=== PATIENT | female | born 1980 | race African-American/Black ===

== ENCOUNTER 2019-02-10 14:48 | Outpatient (CLI) | payer BC, MEDICAID ==
[2019-02-10 15:32] LABS: APPEARANCE,URINE CLEAR; BILIRUBIN,URINE NEGATIVE (NEGATIVE); COLOR,URINE YELLOW; GLUCOSE, URINE NEGATIVE (NEGATIVE); KETONES,URINE NEGATIVE (NEGATIVE); LEUKOCYTE ESTERASE,URINE NEGATIVE (NEGATIVE); NITRITE,URINE NEGATIVE (NEGATIVE); PROTEIN,URINE NEGATIVE (NEGATIVE); URINE SPECIFIC GRAVITY 1.005; UROBILINOGEN,URINE NEGATIVE mg/dL (<2.0)
[2019-02-10 16:02] LABS: URINE AMPHETAMINES SCREEN NEGATIVE; URINE BARBITURATES SCREEN NEGATIVE; URINE BENZODIAZEPINES SCREEN NEGATIVE; URINE COCAINE SCREEN NEGATIVE; URINE MARIJUANA (THC) SCREEN NEGATIVE; URINE METHADONE SCREEN NEGATIVE; URINE PHENCYCLIDINE SCREEN NEGATIVE
== END 2019-02-10 15:57 | disposition home or self-care (01) ==
LOC: LC 14:48
PROVIDERS: ATTEND Obstetrics & Gynecology
PROC: 4A1HXCZ Monitoring of Products of Conception, Cardiac Rate, External Approach (ICD-10-PCS; principal; 2019-02-10)
DX: O47.02 False labor before 37 completed weeks of gestation, second trimester (principal); Z3A.23 23 weeks gestation of pregnancy
CPT/HCPCS: 80307; 81001

== ENCOUNTER 2019-04-05 12:30 | Inpatient (IN) | payer BC, MEDICAID ==
[2019-06-01 10:24] LABS: ABSOLUTE EOSINOPHILS # (AUTO) 0.1 10^3/uL (0.0-0.6); ABSOLUTE LYMPHOCYTES (AUTO) 1.8 10^3/uL (0.5-4.7); ABSOLUTE MONOCYTES (AUTO) 0.6 10^3/uL (0.1-1.4); ABSOLUTE NEUT (AUTO) 5.5 10^3/uL (1.7-8.2); BASOPHILS % (AUTO) 0.3 % (0-2); EOSINOPHILS % (AUTO) 0.9 % (0-6); HEMATOCRIT 33.8 % (36.0-47.0); HEMOGLOBIN 11.4 g/dL (12.0-15.5); LYMPHOCYTES % (AUTO) 22.4 % (13-45); MEAN CORPUSCULAR HEMOGLOBIN 25.4 pg (27.0-33.4); MEAN CORPUSCULAR HGB CONC 33.8 g/dL (32.0-36.0); MEAN CORPUSCULAR VOLUME 75 fl (80-97); MONOCYTES % (AUTO) 7.9 % (3-13); PLATELET COUNT 196 10^3/uL (150-450); RED CELL DISTRIBUTION WIDTH 16.1 % (11.5-14.0); SEGMENTED NEUTROPHILS % (AUTO) 68.5 % (42-78); TOTAL CELLS COUNTED % (AUTO) 100 %
[2019-06-01 10:44] LABS: APPEARANCE,URINE CLEAR; BILIRUBIN,URINE NEGATIVE (NEGATIVE); COLOR,URINE YELLOW; GLUCOSE, URINE NEGATIVE (NEGATIVE); KETONES,URINE NEGATIVE (NEGATIVE); LEUKOCYTE ESTERASE,URINE NEGATIVE (NEGATIVE); NITRITE,URINE NEGATIVE (NEGATIVE); PROTEIN,URINE NEGATIVE (NEGATIVE); URINE SPECIFIC GRAVITY 1.012
[2019-06-01 11:01] LABS: ADD MANUAL MICROSCOPIC YES
[2019-06-01 11:02] LABS: BACTERIA,URINE 1+ /HPF; RBC,URINE RARE /HPF; WBC,URINE NONE SEEN /HPF
[2019-06-01 11:52] LABS: URINE AMPHETAMINES SCREEN NEGATIVE; URINE BARBITURATES SCREEN NEGATIVE; URINE BENZODIAZEPINES SCREEN NEGATIVE; URINE COCAINE SCREEN NEGATIVE; URINE MARIJUANA (THC) SCREEN NEGATIVE; URINE METHADONE SCREEN NEGATIVE; URINE PHENCYCLIDINE SCREEN NEGATIVE
[2019-06-04] MEDS ORDERED: RINGERS SOLUTION,LACTATED 1,500 ML IV PRN (05:00)
[2019-06-04] MEDS ORDERED: AZITHROMYCIN 500 MG in DEXTROSE 5%-WATER 250 ML IV PRN (05:00)
[2019-06-04] MEDS ORDERED: LIDOCAINE 0.5% INJ-PF (5 MG/ML) 50 ML SDV SUBCUT PRN (05:00)
[2019-06-04] MEDS ORDERED: LACTATED RINGERS 1000 ML IV PRN (05:00)
[2019-06-04] MEDS ORDERED: AZITHROMYCIN INJ 500 MG VIAL IV ONE (07:12)
[2019-06-04] MEDS ORDERED: KETOROLAC TROMETHAMINE INJ/PF 30 MG/1 ML SDV ONE (09:38)
[2019-06-04] MEDS ORDERED: FENTANYL CITRATE INJ/PF 100 MCG/2 ML AMPUL ONE (09:38)
[2019-06-04] MEDS ORDERED: EPHEDRINE SULFATE INJ 50 MG/1 ML AMPULE ONE (09:38)
[2019-06-04] MEDS ORDERED: MIDAZOLAM 2 MG/2 ML INJ ONE (09:38)
[2019-06-04] MEDS ORDERED: OXYTOCIN 10 UNIT/ML VIAL ONE ×2 (09:38→09:40)
[2019-06-04] MEDS ORDERED: ACETAMINOPHEN 1,000 MG/100 ML RTUPB IV ONE (09:39)
[2019-06-04] MEDS ORDERED: ONDANSETRON HCL INJ/PF 4 MG/2 ML SDV ONE (09:39)
[2019-06-04] MEDS ORDERED: PHENYLEPHRINE HCL INJ/PF 10 MG/1 ML SDV ONE (09:39)
[2019-06-04] MEDS ORDERED: OXYTOCIN/NORMAL SALINE 20 UNIT/1,000 ML RTUINJ ONE (09:39)
[2019-06-04] MEDS ORDERED: MORPHINE SULFATE 10 MG/ML INJ IV PRN ×2 (11:04→11:08)
[2019-06-04] MEDS ORDERED: FENTANYL CITRATE INJ/PF 100 MCG/2 ML AMPUL IV PRN ×3 (11:04)
[2019-06-04] MEDS ORDERED: PROMETHAZINE HCL INJ 25 MG/1 ML VIAL IV PRN ×3 (11:04→11:08)
[2019-06-04] MEDS ORDERED: OXYCODONE-ACETAMINOPHEN 5-325 MG TABLET PO PRN ×2 (11:04)
[2019-06-04] MEDS ORDERED: DIPHENHYDRAMINE HCL 50 MG/ML VIAL IV PRN (11:04)
[2019-06-04] MEDS ORDERED: MEPERIDINE HCL/PF INJ 25 MG/1 ML DISP.SYRIN IV PRN (11:04)
[2019-06-04] MEDS ORDERED: DIPH/PERTUSS(ACELL)/TETANUS VAC/PF 0.5 ML SYR (>=10YO) IM PRN (11:08)
[2019-06-04] MEDS ORDERED: MEASLES,MUMPS&RUBELLA VACC/PF 0.5 ML VIAL SUBCUT PRN (11:08)
[2019-06-04] MEDS ORDERED: SIMETHICONE 80 MG TAB.CHEW PO PRN (11:08)
[2019-06-04] MEDS ORDERED: RINGERS SOLUTION,LACTATED 1,000 ML IV PRN (11:08)
[2019-06-04] MEDS ORDERED: ACETAMINOPHEN 325 MG TABLET PO PRN (11:08)
[2019-06-04] MEDS ORDERED: OXYTOCIN/NORMAL SALINE 20 UNIT/1,000 ML RTUINJ IV PRN (11:08)
[2019-06-04] MEDS ORDERED: ACETAMINOPHEN 100 ML IV PRN (11:08)
--- NOTE | 2019-06-04 11:15 | Operative Report ---
Operative Report DATE OF SURGERY: 06/04/19 PREOPERATIVE DIAGNOSIS: IUP @ 39 wks, previous c/section x 3, undesired fertili ty POSTOPERATIVE DIAGNOSIS: Same OPERATION: Repeat with [place] tubal ligation SURGEON: RADHA DALEY 1ST TELEGRAPHIC INSTRUMENT SUPERVISOR: EMMA ALVES ANESTHESIA: Spinal TISSUE REMOVED OR ALTERED: Bilateral fallopian tube segments COMPLICATIONS: None ESTIMATED BLOOD LOSS: 750 cc INTRAOPERATIVE FINDINGS: Dense adhesions of fascia to rectus muscle otherwise normal uterus tubes and ovaries PROCEDURE: PROCEDURE IN DETAIL: The patient was taken to the operating room, prepared and draped in a normal sterile fashion in a supine position with a leftward tilt. A transverse skin incision was made with a scalpel and carried through to the underlying layer of fascia with the same scalpel. The fascia was excised in the midline and extended laterally with Bobby. The fascia was then dissected from the rectus muscle sharply with Bobby and the rectus muscle was divided and the peritoneal cavity was entered sharply with the same Metzenbaum. With good visualization of the bladder and the uterus the bladder blade was inserted. The hysterotomy was nicked with a scalpel and extended laterally with surgeon finger fraction. The infant was then delivered atraumatically. The nose and mouth were suctioned with a suction bulb, the cord was clamped and cut and handed off to awaiting pediatricians. Cord blood was collected. The placenta was removed manually. The uterus was exteriorized and cleared of clots and debris. The hysterotomy was closed with 0 Monocryl in a running, locked fashion. A second layer of the same suture was used to imbricate to ensure hemostasis. Attention was then turned to the fallopian tubes where the right fallopian tube was grasped with a Mickey, the mesosalpinx was divided with a Bovie. a 3-1/2 cm segment of fallopian tube was tied off with 2 pieces of 2-0 chromic.this segment was ligated using Metzenbaums and the pedicles were made hemostatic with the Bovie. This procedure was repeated on the left fallopian tube without difficulty . the uterus was returned to the abdomen and peritoneal cavity was cleared of clots and debris. The pedicles were inspected and they were still hemostatic. the rectus muscle and peritoneum were repaired with mattress stitch of 2-0 Chromic. The fascia was closed with 0-Vicryl. The subcutaneous layer was closed with plain catgut and the skin was closed with 4-0 Vicryl. The patient tolerated the procedure well. Sponge, lap, and needle counts correct x2 and the patient was taken to recovery in stable condition.
[2019-06-04] MEDS: FENTANYL CITRATE INJ/PF 100 MCG/2 ML AMPUL ONE ×2 (12:15→12:20)
[2019-06-04] MEDS: MORPHINE SULFATE 10 MG/ML INJ ONE ×2 (12:52→12:55)
[2019-06-04] MEDS ORDERED: HYDROMORPHONE HCL INJ/PF 2 MG/ML AMPULE ONE (15:27)
[2019-06-04] MEDS: DOCUSATE SODIUM 100 MG CAPSULE PO SCH (18:22)
[2019-06-04] MEDS: KETOROLAC TROMETHAMINE INJ/PF 30 MG/1 ML SDV IV SCH (18:22)
[2019-06-04] MEDS: OXYCODONE-ACETAMINOPHEN 5-325 MG TABLET PO PRN (20:23)
[2019-06-05] MEDS: OXYCODONE-ACETAMINOPHEN 5-325 MG TABLET PO PRN ×2 (01:04→09:37)
[2019-06-05] MEDS: KETOROLAC TROMETHAMINE INJ/PF 30 MG/1 ML SDV IV SCH (01:07)
[2019-06-05 06:58] LABS: HEMATOCRIT 23.1 % (36.0-47.0); MEAN CORPUSCULAR HEMOGLOBIN 25.3 pg (27.0-33.4); MEAN CORPUSCULAR HGB CONC 33.6 g/dL (32.0-36.0); MEAN CORPUSCULAR VOLUME 75 fl (80-97); PLATELET COUNT 168 10^3/uL (150-450); RED BLOOD COUNT 3.06 10^6/uL (3.72-5.28); RED CELL DISTRIBUTION WIDTH 16.4 % (11.5-14.0); WHITE BLOOD COUNT 10.4 10^3/uL (4.0-10.5)
[2019-06-05 07:01] LABS: HEMOGLOBIN 7.7 g/dL (12.0-15.5)
[2019-06-05] MEDS ORDERED: NORMAL SALINE 1000 ML 500 ML IV ONE (08:45)
[2019-06-05] MEDS: PRENATAL VITAMIN W DHA CAPSULE PO SCH (09:37)
[2019-06-05] MEDS: DOCUSATE SODIUM 100 MG CAPSULE PO SCH ×2 (09:37→17:25)
[2019-06-05] MEDS: IBUPROFEN 800 MG TABLET PO SCH ×3 (11:30→23:14)
--- NOTE | 2019-06-05 11:41 | PDOC PROGRESS REPORT ---
Subjective-OB Progress Note for:: 06/05/19 Subjective: Sitting up in bed, doing well, holding baby, pain under control, walking, passing gas Physical Exam (OB) Vital Signs: Temp Pulse Resp BP Pulse Ox 97.7 F 74 12 121/66 98 06/05/19 07:59 06/05/19 07:59 06/05/19 07:59 06/05/19 07:59 06/05/19 07:59 Intake & Output 06/04/19 06/05/19 06/06/19 06:59 06:59 06:59 Intake Total 1675 500 Output Total 2053 400 Balance -378 100 Weight 92.079 kg - PIH/Pre-Eclampsia Clonus: Negative Headache: Absent Epigastric Pain: No Visual Changes: No - Dressing Removed: No Incision: Dressing Closure Type: Sutures - Lochia Lochia Amount: Scant < 10 ml Lochia Color: Rubra/Red - Abdomen Description: Tender, Soft, Round, Distended Hernia Present: No Fundal Description: Firm, Midline Fundal Height: u/u - u/2 Objective-Diagnostic Laboratory: 06/05/19 06:46 06/05/19 06:46 WBC 10.4 RBC 3.06 L Hgb 7.7 L Hct 23.1 L MCV 75 L MCH 25.3 L MCHC 33.6 RDW 16.4 H Plt Count 168 Assessment and Plan(PN) - Assessment and Plan (1) Status post surgical removal of both fallopian tubes Is this a current diagnosis for this admission?: Yes (2) Status post repeat low transverse section Is this a current diagnosis for this admission?: Yes - Time Spent with Patient Time with patient: Less than 15 minutes Medications reviewed and adjusted accordingly: Yes - Disposition Anticipated Discharge: Home Within: within 24 hours
[2019-06-05 21:07] LABS: HEMATOCRIT 21.9 % (36.0-47.0); MEAN CORPUSCULAR HEMOGLOBIN 24.8 pg (27.0-33.4); MEAN CORPUSCULAR VOLUME 75 fl (80-97); PLATELET COUNT 190 10^3/uL (150-450); RED BLOOD COUNT 2.93 10^6/uL (3.72-5.28); RED CELL DISTRIBUTION WIDTH 16.4 % (11.5-14.0); WHITE BLOOD COUNT 11.1 10^3/uL (4.0-10.5)
[2019-06-05 21:11] LABS: HEMOGLOBIN 7.2 g/dL (12.0-15.5)
[2019-06-06] MEDS: OXYCODONE-ACETAMINOPHEN 5-325 MG TABLET PO PRN ×2 (01:19→10:20)
[2019-06-06] MEDS: IBUPROFEN 800 MG TABLET PO SCH ×3 (05:26→17:34)
[2019-06-06] MEDS ORDERED: NORMAL SALINE 250 ML IV PRN (10:07)
[2019-06-06] MEDS: PRENATAL VITAMIN W DHA CAPSULE PO SCH (10:11)
[2019-06-06] MEDS: DOCUSATE SODIUM 100 MG CAPSULE PO SCH ×2 (10:11→17:34)
--- NOTE | 2019-06-06 10:12 | PDOC PROGRESS REPORT ---
Subjective-OB Progress Note for:: 06/06/19 Subjective: Pt had CS 2 days ago, feeling weak and says she almost passed out in the bathroom. She also c/o having fast heart rate. Reports reg diet, +flatus and light vaginal bleeding. We discussed her getting 2 units of blood, and she agrees to proceed. Physical Exam (OB) Vital Signs: Temp Pulse Resp BP Pulse Ox 97.5 F 105 H 20 127/81 H 100 06/06/19 07:58 06/06/19 08:28 06/06/19 07:58 06/06/19 08:28 06/06/19 08:28 Intake & Output 06/05/19 06/06/19 06/07/19 06:59 06:59 06:59 Intake Total 1675 500 Output Total 2053 400 Balance -378 100 - PIH/Pre-Eclampsia Clonus: Negative Headache: Absent Epigastric Pain: No Visual Changes: No - Dressing Removed: Yes Incision: Dressing Closure Type: Sutures - Lochia Lochia Amount: Scant < 10 ml Lochia Color: Rubra/Red - Abdomen Description: Tender, Soft, Round, Distended Hernia Present: No Fundal Description: Firm, Midline Fundal Height: u/u - u/2 Objective-Diagnostic Laboratory: 06/05/19 20:40 06/05/19 20:40 WBC 11.1 H RBC 2.93 L Hgb 7.2 L Hct 21.9 L MCV 75 L MCH 24.8 L MCHC 33.0 RDW 16.4 H Plt Count 190 Assessment and Plan(PN) - Assessment and Plan (1) Acute blood loss as cause of postoperative anemia Is this a current diagnosis for this admission?: Yes (2) Status post repeat low transverse section Is this a current diagnosis for this admission?: Yes (3) Status post surgical removal of both fallopian tubes Is this a current diagnosis for this admission?: Yes (4) Gallstones and inflammation of gallbladder without obstruction Is this a current diagnosis for this admission?: Yes - Time Spent with Patient Time with patient: Less than 15 minutes Medications reviewed and adjusted accordingly: Yes - Disposition Anticipated Discharge: Home Within: within 24 hours
[2019-06-07] MEDS: IBUPROFEN 800 MG TABLET PO SCH ×3 (00:19→11:54)
[2019-06-07 03:36] LABS: HEMATOCRIT 25.2 % (36.0-47.0); HEMOGLOBIN 8.6 g/dL (12.0-15.5); MEAN CORPUSCULAR HEMOGLOBIN 26.4 pg (27.0-33.4); MEAN CORPUSCULAR VOLUME 78 fl (80-97); PLATELET COUNT 187 10^3/uL (150-450); RED BLOOD COUNT 3.24 10^6/uL (3.72-5.28); RED CELL DISTRIBUTION WIDTH 17.3 % (11.5-14.0); WHITE BLOOD COUNT 9.7 10^3/uL (4.0-10.5)
[2019-06-07] MEDS: OXYCODONE-ACETAMINOPHEN 5-325 MG TABLET PO PRN (04:54)
[2019-06-07] MEDS: PRENATAL VITAMIN W DHA CAPSULE PO SCH (09:41)
[2019-06-07] MEDS: DOCUSATE SODIUM 100 MG CAPSULE PO SCH (09:41)
--- NOTE | 2019-06-07 10:57 | PDOC DISCHARGE SUMMARY ---
Final Diagnosis Discharge Date: 06/07/19 - Final Diagnosis (1) Acute blood loss as cause of postoperative anemia Is this a current diagnosis for this admission?: Yes (2) Status post repeat low transverse section Is this a current diagnosis for this admission?: Yes (3) Status post surgical removal of both fallopian tubes Is this a current diagnosis for this admission?: Yes Discharge Data - Discharge Medication Prescriptions: Ibuprofen [Motrin 800 mg Tablet] 800 mg PO Q6 #90 tablet Oxycodone HCl/Acetaminophen [Percocet 5-325 mg Tablet] 1 tab PO Q6H PRN #20 tablet PRN Reason: Home Medications: Pnv 102/Iron/Folate 1/Dss/Dha [Vitafol Fe+ Docusate Combo Pck] 1 tab PO DAILY 02/10/19 Cholecalciferol (Vitamin D3) [Vitamin D3 5000 unit Capsule] 5,000 unit PO DAILY 06/01/19 Ibuprofen [Motrin 800 mg Tablet] 800 mg PO Q6 #90 tablet 06/07/19 Oxycodone HCl/Acetaminophen [Percocet 5-325 mg Tablet] 1 tab PO Q6H PRN #20 tablet 06/07/19 Reason(s) for Admission: Ceasarean Section-Repeat Intrapartum Procedure(s): : Low Cervical, Transverse - Diagnosis Test Laboratory: Temp Pulse Resp BP Pulse Ox 97.5 F 94 14 135/74 H 98 06/07/19 08:32 06/07/19 08:32 06/07/19 08:32 06/07/19 08:32 06/07/19 08:32 06/01/19 06/01/19 06/05/19 09:51 09:52 06:46 RBC 4.50 3.06 L Hgb 11.4 L 7.7 L Hct 33.8 L 23.1 L Urine Opiates Screen NEGATIVE 06/05/19 06/07/19 20:40 03:18 RBC 2.93 L 3.24 L Hgb 7.2 L 8.6 L Hct 21.9 L 25.2 L Urine Opiates Screen - Discharge information/Instructions Discharge Activity: Balance Activity w/Rest, No Lifting/Push/Pulling, Pelvic Rest, Walk Frequently Discharge Diet: Regular Disposition: HOME, SELF-CARE Follow up with: [facility] in: 1
[2019-06-07 11:48] VITALS: BP 141/87
== END 2019-06-07 14:00 | disposition home or self-care (01) | DRG 784 ==
LOC: 2S 06-04 06:29
PROVIDERS: ADMIT Obstetrics & Gynecology; ATTEND Obstetrics & Gynecology
PROC: 0UB70ZZ Excision of Bilateral Fallopian Tubes, Open Approach (ICD-10-PCS; 2019-06-04)
PROC: 10D00Z1 Extraction of Products of Conception, Low, Open Approach (ICD-10-PCS; principal; 2019-06-04 09:15)
PROC: 30233N1 Transfusion of Nonautologous Red Blood Cells into Peripheral Vein, Percutaneous Approach (ICD-10-PCS; 2019-06-06)
DX: O34.211 Maternal care for low transverse scar from previous cesarean delivery (principal); D62 Acute posthemorrhagic anemia; Z30.2 Encounter for sterilization; Z37.0 Single live birth; O99.02 Anemia complicating childbirth; Z3A.39 39 weeks gestation of pregnancy; Z86.19 Personal history of other infectious and parasitic diseases; Z88.0 Allergy status to penicillin; Z88.8 Allergy status to other drugs, medicaments and biological substances
CPT/HCPCS: 1961; 36415; 36430; 80307; 81001; 85025; 85027; 86850; 86900; 86901; 86920; 88302; 94799; J0131; J1170; J1885; J2250; J2270; J2370; J2405; J2590; J3010; J3490; J7030; J7120; P9016

== ENCOUNTER 2019-05-11 14:27 | Outpatient (CLI) | payer BC, MEDICAID ==
[2019-05-11] MEDS ORDERED: HYDROXYZINE PAMOATE 50 MG CAPSULE PO ONE (15:00)
[2019-05-11] MEDS ORDERED: HYDROXYZINE PAMOATE 50 MG CAPSULE ONE (15:02)
== END 2019-05-11 15:33 | disposition home or self-care (01) ==
LOC: LC 14:27
PROVIDERS: ATTEND Obstetrics & Gynecology
PROC: 4A1HXCZ Monitoring of Products of Conception, Cardiac Rate, External Approach (ICD-10-PCS; principal; 2019-05-11)
DX: O47.03 False labor before 37 completed weeks of gestation, third trimester (principal); Z3A.35 35 weeks gestation of pregnancy

== ENCOUNTER 2019-07-04 08:46 | Outpatient (CLI) | payer BC, MEDICAID ==
[~2019-07-04 08:46] MED LIST: FERRIC CARBOXYMALTOSE 750 MG in NORMAL SALINE 250 ML IV PRN; NORMAL SALINE 250 ML IV PRN
[2019-07-04 09:05] VITALS: BP 139/85
== END 2019-07-04 10:30 | disposition home or self-care (01) ==
LOC: II 08:46 → 5TH 08:48 → II 10:30
PROVIDERS: ATTEND Internal Medicine
PROC: 3E033GC Introduction of Other Therapeutic Substance into Peripheral Vein, Percutaneous Approach (ICD-10-PCS; principal; 2019-07-04)
DX: D50.8 Other iron deficiency anemias (principal); K90.9 Intestinal malabsorption, unspecified
CPT/HCPCS: 96365; J7050; J1439

== ENCOUNTER 2019-07-11 08:41 | Outpatient (CLI) | payer BC, MEDICAID ==
[2019-07-11 08:58] VITALS: BP 139/89
== END 2019-07-11 09:35 | disposition home or self-care (01) ==
LOC: 5TH 08:41 → II 08:41
PROVIDERS: ATTEND Internal Medicine
PROC: 3E033GC Introduction of Other Therapeutic Substance into Peripheral Vein, Percutaneous Approach (ICD-10-PCS; principal; 2019-07-11)
DX: D50.8 Other iron deficiency anemias (principal); K90.9 Intestinal malabsorption, unspecified
CPT/HCPCS: 96365; J7050; J1439

== ENCOUNTER 2020-04-06 10:51 | Emergency (ER) | payer MEDICAID, OTHER ==
[2020-04-06] MEDS ORDERED: NORMAL SALINE 1000 ML 1,000 ML IV ONE (11:15)
[2020-04-06] MEDS ORDERED: METOCLOPRAMIDE HCL INJ/PF 10 MG/2 ML SDV IV ONE (11:15)
[2020-04-06] MEDS ORDERED: DIPHENHYDRAMINE HCL 50 MG/ML VIAL IV ONE (11:15)
--- NOTE | 2020-04-06 11:27 | ER Document Report ---
ED GI/ - General Chief Complaint: Vomiting Stated Complaint: VOMITING, HEADACHE Time Seen by Provider: 04/06/20 11:02 Notes: CHIEF COMPLAINT: Headaches for 6 months HPI: 39-year-old female presenting to the emergency department complaining of a frontal headache that woke her from sleep around 5 AM this morning with 2-3 episodes of nausea vomiting felt fine going to bed last night no fevers. She is been having weekly headaches similar to this over the last 6 months has not seen a primary care provider for evaluation of same. No history of migraines. No family history of aneurysm or brain tumor. ROS: See HPI - all other systems were reviewed and are otherwise negative Constitutional: no fever Eyes: no drainage, no blurred vision ENT: no runny nose, no sore throat Cardiovascular: no chest pain Resp: no SOB, no cough GI: Positive vomiting, no diarrhea, no abdominal pain : no dysuria Integumentary: no rash Allergy: no hives Musculoskeletal: no extremity pain or swelling Neurological: no numbness/tingling, no weakness, positive headache MEDICATIONS: I agree with the patient medications as charted by the RN. ALLERGIES: I agree with the allergies as charted by the RN. PAST MEDICAL HISTORY/PAST SURGICAL HISTORY: Reviewed and agree as charted by RN. SOCIAL HISTORY: Reviewed and agree as charted by RN. FAMILY HISTORY: No significant familial comorbid conditions directly related to patient complaint EXAM: Reviewed vital signs as charted by RN. CONSTITUTIONAL: Alert and oriented and responds appropriately to questions. Well-appearing; well-nourished HEAD: Normocephalic; atraumatic EYES: PERRL; Conjunctivae clear, sclerae non-icteric. No photophobia ENT: normal nose; no rhinorrhea; moist mucous membranes; pharynx without lesions noted, no uvula edema or deviation, no tonsillar hypertrophy, phonation normal NECK: Supple without meningismus; non-tender; no cervical lymphadenopathy, no masses CARD: RRR; no murmurs, no clicks, no rubs, no gallops; symmetric distal pulses RESP: Normal chest excursion without splinting or tachypnea; breath sounds clear and equal bilaterally; no wheezes, no rhonchi, no rales, pulse oximetry ABD/GI: Normal bowel sounds; non-distended; soft, non-tender, no rebound, no gua rding; no palpable organomegaly or masses. BACK: The back appears normal and is non-tender to palpation, there is no CVA tenderness EXT: Normal ROM in all joints; non-tender to palpation; no cyanosis, no effusions, no edema SKIN: Normal color for age and race; warm; dry; good turgor; no acute lesions noted NEURO: Moves all extremities equally; Motor and sensory function intact. Strength equal 5/5 bilateral upper and lower extremities. Gait is normal. Sensation intact and equal bilateral upper and lower extremities. CN II through XII grossly intact PSYCH: The patient's mood and manner are appropriate. Grooming and personal hygiene are appropriate. MDM: 39-year-old female having weekly headaches for 6 months. Worse today with some nausea vomiting. Neurologically intact. Given the history will obtain CT imaging to evaluate for possible mass, bleeding. Will obtain basic screening labs. Plan to hydrate and treat patient's headache and reassess TRAVEL OUTSIDE OF THE [place] IN LAST 30 DAYS: No - Related Data Allergies/Adverse Reactions: nitrofurantoin [From Macrobid] Allergy (Severe, Verified 05/22/19 10:18) hives,legs cramping nitrofurantoin macrocrystalline [From Macrobid] Allergy (Severe, Verified 10:18) hivs, leg cramps Penicillins Allergy (Severe, Verified 05/22/19 10:18) Hives Past Medical History - Social History Smoking Status: Unknown if Ever Smoked Family History: Reviewed & Not Pertinent - Past Medical History Cardiac Medical History: Denies: Hx Coronary Artery Disease, Hx Heart Attack, Hx Hypertension Pulmonary Medical History: Denies: Hx Asthma, Hx Bronchitis, Hx COPD, Hx Pneumonia Neurological Medical History: Denies: Hx Cerebrovascular Accident, Hx Seizures Musculoskeletal Medical History: Denies Hx Arthritis Psychiatric Medical History: Reports: Hx Anxiety Infectious Medical History: Denies: Hx HIV Past Surgical History: Reports: Hx Abdominal Surgery - hernia, Hx Section - x3 - Immunizations Hx Diphtheria, Pertussis, Tetanus Vaccination: Yes Physical Exam - Vital signs Vitals: Temp Pulse Resp BP Pulse Ox 97.6 F 65 17 124/63 100 04/06/20 11:29 04/06/20 11:29 04/06/20 11:29 04/06/20 11:29 04/06/20 11:29 Course - Re-evaluation Re-evalutation: 04/06/20 13:03 Patient states nausea has completely resolved. Headache is almost completely resolved. Lab work and imaging studies do not show acute abnormalities. May be atypical migraine. She has an appointment with a primary provider in 2 weeks. She is otherwise afebrile and in no acute distress. Will give Toradol here. Will give return instructions. Will prescribe Phenergan for home for nausea as she seems to get these headaches weekly. - Vital Signs Vital signs: Temp Pulse Resp BP Pulse Ox 97.6 F 65 17 124/63 100 04/06/20 11:29 04/06/20 11:29 04/06/20 11:29 04/06/20 11:29 04/06/20 11:29 - Laboratory Result Diagrams: 04/06/20 11:05 04/06/20 11:05 Laboratory results interpreted by me: 04/06/20 11:05 Chloride 108 H Discharge - Discharge Clinical Impression: Atypical migraine Condition: Stable Disposition: HOME, SELF-CARE Additional Instructions: Your CT imaging did not show any acute abnormalities your lab work today was normal. Follow-up with your primary care provider in 2 weeks as scheduled. Return for any concerns. Take the Phenergan for any recurrent nausea or vomiting. Do not drive if taking this medication as it can make you drowsy. Prescriptions: Promethazine HCl [Phenergan 25 mg Tablet] 1 tab PO Q6H PRN #15 tablet PRN Reason:
[2020-04-06 11:43] LABS: ABSOLUTE LYMPHOCYTES (AUTO) 1.5 10^3/uL (0.5-4.7); ABSOLUTE MONOCYTES (AUTO) 0.3 10^3/uL (0.1-1.4); ABSOLUTE NEUT (AUTO) 5.6 10^3/uL (1.7-8.2); BASOPHILS % (AUTO) 0.3 % (0-2); EOSINOPHILS % (AUTO) 0.5 % (0-6); HEMATOCRIT 41.7 % (36.0-47.0); HEMOGLOBIN 14.1 g/dL (12.0-15.5); LYMPHOCYTES % (AUTO) 19.6 % (13-45); MEAN CORPUSCULAR HEMOGLOBIN 28.1 pg (27.0-33.4); MEAN CORPUSCULAR HGB CONC 33.9 g/dL (32.0-36.0); MEAN CORPUSCULAR VOLUME 83 fl (80-97); MONOCYTES % (AUTO) 3.9 % (3-13); PLATELET COUNT 267 10^3/uL (150-450); RED BLOOD COUNT 5.03 10^6/uL (3.72-5.28); SEGMENTED NEUTROPHILS % (AUTO) 75.7 % (42-78); TOTAL CELLS COUNTED % (AUTO) 100 %; WHITE BLOOD COUNT 7.4 10^3/uL (4.0-10.5)
[2020-04-06 12:13] LABS: ALBUMIN 4.3 g/dL (3.5-5.0); ALKALINE PHOSPHATASE 61 U/L (38-126); ANION GAP 5 (5-19); ASPARTATE AMINO TRANSFERASE 18 U/L (14-36); BILIRUBIN,TOTAL 0.6 mg/dL (0.2-1.3); BLOOD UREA NITROGEN 10 mg/dL (7-20); CALCIUM 9.5 mg/dL (8.4-10.2); CARBON DIOXIDE 27 mmol/L (22-30); CHLORIDE 108 mmol/L (98-107); GLUCOSE 106 mg/dL (75-110); POTASSIUM 4.3 mmol/L (3.6-5.0); TOTAL PROTEIN 7.7 g/dL (6.3-8.2)
--- NOTE | 2020-04-06 12:32 | RADIOLOGY REPORT (SQ) ---
EXAM DESCRIPTION: CT HEAD WITHOUT IMAGES COMPLETED DATE/TIME: 04/06/2020 12:16 pm REASON FOR STUDY: headache COMPARISON: 11/12/2012. TECHNIQUE: Axial images acquired through the brain without intravenous contrast. Images reviewed wi th bone, brain and subdural windows. Additional sagittal and coronal reconstructions were generated. Images stored on PACS. All CT scanners at this facility use dose modulation, iterative reconstruction, and/or weight based d osing when appropriate to reduce radiation dose to as low as reasonably achievable (ALARA). [facility]: Dose Right [facility]: CareDose [facility]: Dose Right [facility]: Teradose 4D [facility]: Smart Jeeran RADIATION DOSE: CT Rad equipment meets quality standard of care and radiation dose reduction techniq ues were employed. CTDIvol: 53.2 mGy. DLP: 1017 mGy-cm. mGy. LIMITATIONS: None. FINDINGS: VENTRICLES: Normal size and contour. CEREBRUM: No masses. No hemorrhage. No midline shift. No evidence for acute infarction. Normal gra y/white matter differentiation. No areas of low density in the white matter. CEREBELLUM: No masses. No hemorrhage. No alteration of density. No evidence for acute infarction. EXTRAAXIAL SPACES: No fluid collections. No masses. ORBITS AND GLOBE: No intra- or extraconal masses. Normal contour of globe without masses. CALVARIUM: No fracture. PARANASAL SINUSES: No fluid or mucosal thickening. SOFT TISSUES: No mass or hematoma. OTHER: No other significant finding. IMPRESSION: NORMAL BRAIN CT WITHOUT CONTRAST. EVIDENCE OF ACUTE STROKE: NO. COMMENT: Quality ID # [id number]: Final reports with documentation of one or more dose reduction techniques (e.g., Automated exposure control, adjustment of the mA and/or kV according to patient size, use of iterative reconstruction technique) TECHNICAL DOCUMENTATION: JOB ID: [id number] 2010 [employer]- All Rights Reserved Reading location - IP/workstation name: [email or web address]
[2020-04-06] MEDS ORDERED: KETOROLAC TROMETHAMINE INJ/PF 30 MG/1 ML SDV IV ONE (13:03)
[2020-04-06 13:38] VITALS: BP 127/77
== END 2020-04-06 13:36 | disposition home or self-care (01) ==
LOC: ER 10:51
DX: G43.909 Migraine, unspecified, not intractable, without status migrainosus (principal); R11.2 Nausea with vomiting, unspecified; Z88.1 Allergy status to other antibiotic agents; Z88.0 Allergy status to penicillin
CPT/HCPCS: 99284; 96361; 96374; 96375; 36415; 85025; 80053; 70450; J1200; J1885; J2765; J7030